=== PATIENT | male | born 1935 | race Two or more races ===

== ENCOUNTER 2017-02-25 15:33 | Emergency (ER) | payer MEDICAID, OTHER ==
[~2017-02-25] VITALS: Ht 165.1 cm; Wt 68.0 kg
[2017-02-25 16:03] VITALS: BP 111/66
== END 2017-02-25 16:07 | disposition left against medical advice (07) ==
LOC: ER 15:49
DX: S01.91XA Laceration without foreign body of unspecified part of head, initial encounter (principal); Z53.21 Procedure and treatment not carried out due to patient leaving prior to being seen by health care provider; V29.9XXA Motorcycle rider (driver) (passenger) injured in unspecified traffic accident, initial encounter; Y93.55 Activity, bike riding; Y99.8 Other external cause status; Y92.89 Other specified places as the place of occurrence of the external cause